=== PATIENT | female | born 1945 | race Caucasian/White ===

== ENCOUNTER 2023-11-07 12:29 | Emergency (ER) | payer OTHER, SELFPAY ==
[2023-11-07] VITALS (8 sets, daily range): BP systolic 88–141; BP diastolic 36–78; PULSE 59–72; BMI 36.3
--- NOTE | 2023-11-07 12:55 | ED.GENMED ---
History of Present Illness
General
Chief Complaint: Headache
Time Seen by Provider: 11/07/23 12:33
History of Present Illness
History of Present Illness:
78-year-old female history of asthma, atrial fibrillation on Eliquis, hypertension, hyperlipidemia, stroke with no residual deficits presenting with syncopal episode today. Pt states she stood up to make a sandwich when she felt dizzy and had a
syncopal episode. Pt denies striking her head. Pt states she had a syncopal episode yesterday when she was packing her car, felt dizzy and woke up on the ground. Pt denies striking her head. Pt denies chest pain or abdominal pain. Pt states she has
been having a left posterior headache radiating towards her left eye for the past 4 days, none now. Pt denies history of previous headache. Pt states she has been seeing floaters described as 'firework' in her right eye for the past 4 days, none
now. Pt denies numbness, weakness, tingling, neck pain, back pain, nausea, vomiting, diarrhea, or urinary symptoms. Pt reports decreased PO intake since Wednesday 11/01 due to 'not being hungry'. Pt states she has a productive cough with associated
shortness of breath for the past 1 month.
Phy Exam
Physical Exam
Physical Exam:
General: Alert, no acute distress
Head: NCAT
Eyes: clear conjunctiva, PERRLA, EOMI
Neck: supple. No midline tenderness to palpation
Cardiac: regular rate and rhythm, no murmur
Lungs: clear to auscultation bilaterally. No wheezes, rales, or rhonchi. Speaking full unlabored sentences. No respiratory distress.
Abdomen: soft, nondistended nontender. No rebound or guarding.
MSK: no lower extremity edema bilaterally. No deformity. No midline cervical/thoracic/lumbar tenderness to palpation.
Skin: warm, dry
Neuro: Alert and oriented x3. Cranial nerves II through XII grossly intact no focal deficits. 5/5 strength bilateral upper and lower extremity. No pronator drift bilateral upper and lower extremity. Normal finger-nose. No slurred speech.
Course
Orders/Labs/Results
Orders:
Orders
11/07/23 12:35
Electrocardiogram (*1) Urgent
Reason for Study: Vertigo / Dizzy
EKG- Treatment ONCE
11/07/23 12:46
CMP [Comprehensive Metabolic Panel] Urgent
Complete Blood Count/With Diff Urgent
11/07/23 12:53
EKG [Electrocardiogram (*1)] Urgent
Reason for Study: Syncope
CT Head W/o Iv Contrast Urgent
Comment:
Reason For Exam: left sided headache, on eliquis
EKG- Treatment ONCE
Orthostatic VS- Treatment ONCE
CXR2 [CR Chest - 2 Views ] Urgent
Comment:
Reason For Exam: sob
11/07/23 16:32
UA Reflex to Culture [Urinalysis Reflex To Culture] Urgent
Date Specimen was Collected: 11/07/23
Time Specimen was Collected: 16:31
Urine Microscopic Reflex Cult Urgent
Urine Culture Urgent
KRANTHI Source: U
Specimen Description:
Date Specimen was Collected: 11/07/23
Time Specimen was Collected: 16:31
11/07/23 17:44
CefTRIAXone [Rocephin] 1,000 mg IV NOW STA
11/07/23 17:54
Sterile Water [Sterile Water For Injection] 10 ml .ROUTE .STK-MED ONE
Abnormal Lab Results
11/07/23 11/07/23
12:46 16:32
WBC 11.9 H 10^3/uL
(4.8-10.8)
MCH 31.4 H pg
(27.0-31.0)
Abs Immat Gran (auto) 0.1 H 10^3/uL
(0-0.05)
Absolute Neuts (auto) 7.8 H 10^3/uL
(1.4-6.5)
Absolute Monos (auto) 0.9 H 10^3/uL
(0.1-0.6)
Potassium 3.4 L mmol/L
(3.5-5.1)
BUN 43 H mg/dl
(7-17)
Creatinine 1.8 H mg/dL
(0.6-1.0)
Glucose 102 H mg/dl
(70-99)
Total Bilirubin 1.4 H mg/dl
(0.2-1.3)
Urine Ketones Trace A
(Negative)
Urine Bilirubin 1+ A
(Negative)
Leukocyte Esterase Rfl 2+ A
(Negative)
Urine Bacteria (Reflex) Moderate A
(Negative)
11/07/23 12:46
11/07/23 12:46
Vital Signs
Initial and Last Documented VS:
Initial Vital Signs
BP
141/68
11/07/23 12:33
Last Documented Vital Signs
Temp Pulse Resp BP Pulse Ox
98 F 68 21 133/63 97
11/07/23 12:40 11/07/23 17:30 11/07/23 18:15 11/07/23 14:00 11/07/23 16:15
MDM/Problems Addressed
MDM/Problems Addressed:
78-year-old female history of asthma, atrial fibrillation, hypertension, hyperlipidemia presenting with 2 syncopal episodes starting yesterday. Patient states that she felt dizzy prior to syncopal episode. Patient denies striking her head.
Patient states that she was unconscious for a few seconds and then woke up alert and oriented. Patient denies any trauma. Patient reports left-sided posterior headache for the past 4 days which is new. Patient reports decreased p.o. intake.
Patient reports cough for the past 1 month. Differential diagnosis includes orthostatic syncope, electrolyte normality, KATIA, UTI, pneumonia, intracranial hemorrhage, ocular migraine, arrhythmia. Will obtain labs, EKG, CT head, cXR, UA. Will obtain
orthostatics, give 1L NS
+ orthostatics.
Workup reviewed, WBC 11.9. creatinine 1.8 (baseline 1.3) BUN 43, suggesting prerenal injury most likely from decreased PO intake causing orthostatic hypotension. UA concerning for UTI. CT head shows No acute intracranial abnormality. Sequela of
chronic small vessel disease, unchanged. CXR shows No acute cardiopulmonary abnormality. As read by radiology. EKG shows NSR at 61bpm with DE 140 QTc 416 no acute ischemic changes.
Ordered ceftriaxone 1g IV for UTI. Discussed results with patient at bedside. Suspect decreased PO intake causing orthostatic syncope. Pt states she feels better after IV fluids. Vitals stable. Will discharge with keflex, PCP follow up.
*Critical Care Note
Total Time (30-74mins, 75-104mins- exclusive of procedures): Not Applicable
ED Attending Note
-
Portions of this chart may have been created with voice recognition software.� Occasional wrong word or��sound alike� substitutions may have occurred due to the inherent limitations of voice recognition software.
Discharge Plan
Departure
Patient Disposition: Home (Routine Discharge)
Date of Disposition: 11/07/23
Time of Disposition: 18:34
Patient with high blood pressure during this ER visit?: Yes
Discharge Problem:
Acute UTI, Orthostatic syncope
Instructions: Urinary Tract Infection, Adult ED, BLOOD PRESSURE
Prescriptions:
New
cephalexin 500 mg capsule
500 mg PO TID 7 Days Qty: 21 0RF
No Action
montelukast [Singulair] 10 mg Tablet
10 mg PO DAILY
paroxetine HCl [Paxil] 40 mg Tablet
40 mg PO DAILY
cholecalciferol (vitamin D3) [Vitamin D3] 25 mcg (1,000 unit) Tablet
25 mcg PO DAILY
cetirizine 10 mg Tablet
10 mg PO DAILY Qty: 0 0RF
Refresh Classic (PF) 1.4-0.6 % Dropperette
1 drops ophthalmic (eye) QIDPRN PRN (Reason: dry eyes) Qty: 0 0RF
meclizine 25 mg Tablet
12.5 mg PO TID 30 Days Qty: 45 0RF
fluticasone propionate 110 mcg/actuation Hfa Aerosol Inhaler
2 puff inhalation R BID 30 Days Qty: 1 0RF
warfarin [Jantoven] 1 mg tablet
3 mg PO DAILY 30 Days Qty: 90 0RF
atorvastatin 40 mg Tablet
40 mg PO DAILY 30 Days Qty: 30 0RF
polyethylene glycol 3350 [HealthyLax] 17 gram Powder In Packet
17 g PO DAILY 30 Days Qty: 60 0RF
amlodipine 10 mg Tablet
10 mg PO DAILY 30 Days Qty: 30 0RF
metoprolol succinate 25 mg Tablet Extended Release 24 Hr
25 mg PO DAILY 30 Days Qty: 30 0RF
albuterol sulfate [ProAir HFA] 90 mcg/actuation Hfa Aerosol Inhaler
2 puff INHALATION R QIDPRN PRN (Reason: sob) 30 Days Qty: 1 0RF
Referrals:
Sung Sterling MD [Family Provider] -
Activity Restrictions/Additional Instructions:
Take keflex 3 times daily for 7 days
Drink plenty of water, stay hydrated
Follow up with primary care doctor in 1-2 days
Return to the emergency department for fever, persistent vomiting or new/worsening symptoms
Interventions
Interventions:
*Risk Screen - Suicide Last Done: 11/07/23 12:42
*General Assessment Last Done: 11/07/23 12:42
*Neglect/Abuse Screening Last Done: 11/07/23 12:42
ED- Fall Risk Assessment Last Done: 11/07/23 12:44
*Nursing Disposition Last Done: 11/07/23 18:49
ED- Cardiac Assessment Last Done: 11/07/23 12:44
ED- Neurological Assessment Last Done: 11/07/23 12:45
Discharge Date and Time
Print Language: ITALIAN
[2023-11-07 13:00] LABS: % Basophils 0.2 % (0-2); % Eosinophils 0.7 % (0-6); % Immature Granulocytes 0.5 % (0-0.5); % Lymphocytes 25.3 % (20.5-51.1); % Monocytes 7.3 % (1.7-9.3); Absolute Eosinophils 0.1 10^3/uL (0-0.7); Absolute Immature Granulocytes 0.1 10^3/uL (0-0.05); Absolute Monocytes 0.9 10^3/uL (0.1-0.6); Absolute Neutrophils 7.8 10^3/uL (1.4-6.5); Hematocrit 44.3 % (37.0-47.0); Hemoglobin 15.5 g/dL (12.0-16.0); Mean Corpuscular Hgb 31.4 pg (27.0-31.0); Mean Corpuscular Volume 89.9 fL (81.0-99.0); Mean Platelet Volume 9.2 fL (7.4-10.4); Nucleated Red Blood Cells % 0 %; Platelet Count 287 10^3/uL (130-400); Red Blood Cell Count 4.93 10^6/uL (4.20-5.40); Red Cell Dist. Width 12.2 % (11.5-14.5); White Blood Cell Count 11.9 10^3/uL (4.8-10.8)
[2023-11-07 13:09] LABS: ALT (SGPT) 20 U/L (0-35); AST (SGOT) 29 U/L (14-36); Albumin 4.1 g/dl (3.5-5.0); Alkaline Phosphatase 50 U/L (38-126); Blood Urea Nitrogen 43 mg/dl (7-17); Calcium 9.8 mg/dl (8.4-10.2); Carbon Dioxide 26 mmol/L (22-30); Chloride 101 mmol/L (98-107); Estimated Creatinine Clearance 24 ml/min; Glucose 102 mg/dl (70-99); Potassium 3.4 mmol/L (3.5-5.1); Sodium 135 mmol/L (135-145); Total Bilirubin 1.4 mg/dl (0.2-1.3); Total Protein 6.4 g/dl (6.3-8.2); eGFR 28.31
--- NOTE | 2023-11-07 13:19 | EDRN ---
Peever dizzy while standing; had to sit at the end
[2023-11-07 16:41] LABS: Urine Albumin Trace (Neg - Trace); Urine Bilirubin 1+ (Negative); Urine Character Clear (Clear); Urine Color Yellow; Urine Glucose Negative (Negative); Urine Ketone Trace (Negative); Urine Leukocyte 2+ (Negative); Urine Nitrite Negative (Negative); Urine Occult Blood Negative (Negative); Urine Specific Gravity 1.015 (<1.030); Urine Urobilinogen Negative (Neg - 1+)
[2023-11-07 16:50] LABS: Urine Squamous Cell >30 /LPF (Few)
[2023-11-07 16:51] LABS: Urine Bacteria Moderate (Negative); Urine Red Blood Cell 0-2 /HPF (0-2)
[2023-11-07] MEDS: ROCEPHIN 1000 MG IV (17:59)
[2023-11-08 20:18] LABS: Amphetamines Negative (Negative); Barbiturates Negative (Negative); Benzodiazepines Negative (Negative); Buprenorphine Negative (Negative); Cocaine Negative (Negative); Marijuana Negative (Negative); Methadone Negative (Negative); Methamphetamines Negative (Negative); Opiates Negative (Negative); Phencyclidine Negative (Negative); Tricyclic Antidepressants Negative (Negative)
== END 2023-11-07 18:49 | disposition home or self-care (01) ==
LOC: EMR 12:29
PROVIDERS: Emergency Medicine; EMERGENCY PHYSICIAN Emergency Medicine; FAMILY PHYSICIAN Family Medicine
DX: R55 Syncope and collapse (principal); N39.0 Urinary tract infection, site not specified; R51.9 Headache, unspecified; J45.909 Unspecified asthma, uncomplicated; I48.91 Unspecified atrial fibrillation; I10 Essential (primary) hypertension; E78.00 Pure hypercholesterolemia, unspecified; Z79.01 Long term (current) use of anticoagulants; Z86.73 Personal history of transient ischemic attack (TIA), and cerebral infarction without residual deficits
CPT/HCPCS: 99284; 96374; 70450; 71046; 80053; 80306; 81003; 81015; 85025; 87086; 93005

== ENCOUNTER 2023-11-08 10:31 | Emergency (ER) | payer OTHER, SELFPAY ==
[2023-11-08 10:35] VITALS: BMI 36.6
[2023-11-08 11:00] VITALS: BP 153/69
[2023-11-08 11:08] LABS: % Basophils 0.3 % (0-2); % Eosinophils 1.3 % (0-6); % Immature Granulocytes 0.3 % (0-0.5); % Lymphocytes 22.8 % (20.5-51.1); % Monocytes 7.6 % (1.7-9.3); % Neutrophils 67.7 % (42.2-75.2); Absolute Eosinophils 0.1 10^3/uL (0-0.7); Absolute Monocytes 0.7 10^3/uL (0.1-0.6); Absolute Neutrophils 5.9 10^3/uL (1.4-6.5); Hematocrit 43.1 % (37.0-47.0); Hemoglobin 15.1 g/dL (12.0-16.0); Mean Corpuscular Hgb 31.3 pg (27.0-31.0); Mean Corpuscular Volume 89.2 fL (81.0-99.0); Mean Platelet Volume 9.2 fL (7.4-10.4); Nucleated Red Blood Cells % 0 %; Platelet Count 255 10^3/uL (130-400); Red Blood Cell Count 4.83 10^6/uL (4.20-5.40); White Blood Cell Count 8.7 10^3/uL (4.8-10.8)
[2023-11-08 11:18] LABS: ALT (SGPT) 18 U/L (0-35); AST (SGOT) 27 U/L (14-36); Albumin 3.7 g/dl (3.5-5.0); Alkaline Phosphatase 52 U/L (38-126); Blood Urea Nitrogen 44 mg/dl (7-17); Calcium 9.7 mg/dl (8.4-10.2); Carbon Dioxide 26 mmol/L (22-30); Chloride 100 mmol/L (98-107); Estimated Creatinine Clearance 29 ml/min; Glucose 113 mg/dl (70-99); Potassium 3.2 mmol/L (3.5-5.1); Sodium 135 mmol/L (135-145); Total Protein 5.9 g/dl (6.3-8.2); eGFR 35.23
--- NOTE | 2023-11-08 11:57 | ED.GENMED ---
History of Present Illness
General
Chief Complaint: Crisis Evaluation
Source: patient and ambulance crew
Time Seen by Provider: 11/08/23 10:33
History of Present Illness
History of Present Illness:
78-year-old female with past medical history of HTN, HLD, afib, previous CVA, mild CKD and diagnosed with UTI yesterday presenting back to the ER with EMS after patient sent a text to her brother earlier this morning that patient was going to kill
herself. Patient had a plan of finding the gun in her ex-husbands house, with whom she is currently living, and to shoot herself. Patient states that she [id number] area and have been staying with her
ex- to help with some of his medical needs but was told that she needed to leave the house by Saturday. Patient reports that she was evicted from her apartment in [place] and has nowhere to go back there. She had been living with her
daughter and grandchildren but they are currently staying in the [place] as they did not have any place to live either. Patient states she has no other family that she would be able to live with and no other friends as they are all already.
Patient has no other physical complaints at this time. Denies any history of suicidal ideations or attempts in the past
Past History
Past History
ED Past Medical History: Arrthythmia, CVA, HTN and Hypercholesterolemia
ED Past Surgical History: Tonsilectomy
Social History
Tobacco: Non-smoker
Alcohol: None
Drug: None
Personal:
Living: homeless
Review of Systems
Review of Systems
All Other Systems: ROS reviewed and negative except as documented in HPI and ROS
Phy Exam
Physical Exam
Physical Exam:
GENERAL: Alert , in no apparent distress
EYE: conjunctiva clear
Head: Normocephalic atraumatic
NECK: Supple,
ENT: mmm.
LUNGS: no acute respiratory distress
NEUROLOGICAL: Alert and oriented
SKIN: Warm and dry, skin intact.
MUSCULOSKELETAL: well perfused.
PSYCH: Normal and appropriate interaction.
Scores
Heart Failure Risk
Heart Failure Risk Score: Not Applicable
Heart Score for Chest Pain Patients
STEMI patient?: Not applicable
Withdrawal Assessment of Alcohol
Withdrawal Assessment Completed?: Not applicable
Course
Orders/Labs/Results
Orders:
Orders
11/08/23 10:44
Crisis Consult Urgent
Reason for Consult: suicidal ideation
11/08/23 10:45
1:1 Observation - Suicide/ Violent Behavior As Directed
Crisis Consult Urgent
Reason for Consult: suicide ideation
11/08/23 10:49
Complete Blood Count/With Diff Urgent
Comprehensive Metabolic Panel Urgent
11/08/23 11:21
Potassium Chloride [KCl] 40 meq PO NOW STA
11/08/23 12:20
Cephalexin Monohydrate [Keflex] 500 mg PO NOW STA
Abnormal Lab Results
11/08/23
10:49
MCH 31.3 H pg
(27.0-31.0)
Absolute Monos (auto) 0.7 H 10^3/uL
(0.1-0.6)
Potassium 3.2 L mmol/L
(3.5-5.1)
BUN 44 H mg/dl
(7-17)
Creatinine 1.5 H mg/dL
(0.6-1.0)
Glucose 113 H mg/dl
(70-99)
Total Protein 5.9 L g/dl
(6.3-8.2)
11/08/23 10:49
11/08/23 10:49
Vital Signs
Initial and Last Documented VS:
Initial Vital Signs
Pulse Resp Pulse Ox
67 16 96
11/08/23 10:37 11/08/23 10:37 11/08/23 10:37
Last Documented Vital Signs
Pulse Resp BP Pulse Ox
73 16 153/69 94
11/08/23 11:00 11/08/23 11:00 11/08/23 11:00 11/08/23 11:00
MDM/Problems Addressed
MDM/Problems Addressed:
78-year-old female presenting to the emergency department for evaluation of reported suicidal ideation. Patient texted her brother that she was going to kill herself. Plan was to find a gun within her ex-'s house stating 'I know he has been
in there I just did not have the time to find it' with the plan that she was going to shoot herself. Patient states this is in relation to currently being homeless. She was told by her ex- that she was no longer allowed to stay with him and
needed to leave by Saturday. Patient ultimately wishes to go back to [place] but does not know where she was going to live. Labs ordered. Crisis consult ordered as well. Patient may social worker school to help with her current living situation.
*Pulse Oximetry
Patient hypoxic: no
*Critical Care Note
Total Time (30-74mins, 75-104mins- exclusive of procedures): Not Applicable
Data Reviewed
Review of Other/Old Records Reveals: Labs and Records
Patient Management
Social determinants of health affecting care: Living situation, Financial situation and Poor social support
Discussion with other providers: Other
Escalation/DeEscalation of care consider admission/obs:
Per [facility] they are awaiting paperwork from daughter who is POA. Plan will be to disposition patient to inpatient psych facility
ED Attending Note
-
Portions of this chart may have been created with voice recognition software.� Occasional wrong word or��sound alike� substitutions may have occurred due to the inherent limitations of voice recognition software.
Discharge Plan
Departure
Patient Disposition: Psych Facility
Date of Disposition: 11/08/23
Time of Disposition: 14:28
Discharge Problem:
Suicidal ideations
Prescriptions:
No Action
montelukast [Singulair] 10 mg Tablet
10 mg PO DAILY
paroxetine HCl [Paxil] 40 mg Tablet
40 mg PO DAILY
cholecalciferol (vitamin D3) [Vitamin D3] 25 mcg (1,000 unit) Tablet
25 mcg PO DAILY
cetirizine 10 mg Tablet
10 mg PO DAILY Qty: 0 0RF
Refresh Classic (PF) 1.4-0.6 % Dropperette
1 drops ophthalmic (eye) QIDPRN PRN (Reason: dry eyes) Qty: 0 0RF
cephalexin 500 mg capsule
500 mg PO TID 7 Days Qty: 21 0RF
meclizine 25 mg Tablet
12.5 mg PO TID 30 Days Qty: 45 0RF
fluticasone propionate 110 mcg/actuation Hfa Aerosol Inhaler
2 puff inhalation R BID 30 Days Qty: 1 0RF
warfarin [Jantoven] 1 mg tablet
3 mg PO DAILY 30 Days Qty: 90 0RF
atorvastatin 40 mg Tablet
40 mg PO DAILY 30 Days Qty: 30 0RF
polyethylene glycol 3350 [HealthyLax] 17 gram Powder In Packet
17 g PO DAILY 30 Days Qty: 60 0RF
amlodipine 10 mg Tablet
10 mg PO DAILY 30 Days Qty: 30 0RF
metoprolol succinate 25 mg Tablet Extended Release 24 Hr
25 mg PO DAILY 30 Days Qty: 30 0RF
albuterol sulfate [ProAir HFA] 90 mcg/actuation Hfa Aerosol Inhaler
2 puff INHALATION R QIDPRN PRN (Reason: sob) 30 Days Qty: 1 0RF
Referrals:
UNKNOWN - PT NOT,INTERVIEWE [Family Provider] -
Interventions
Interventions:
*Risk Screen - Suicide Last Done: 11/08/23 10:42
*General Assessment Last Done: 11/08/23 10:42
*Neglect/Abuse Screening Last Done: 11/08/23 10:45
ED- Fall Risk Assessment Last Done: 11/08/23 10:41
*ED COVID-19 Vaccine History Last Done: 11/08/23 10:42
ED-Psychological Assessment Last Done: 11/08/23 10:46
Discharge Date and Time
Print Language: PORTUGUESE
[2023-11-08] MEDS: KCL 40 MEQ PO (12:18)
[2023-11-08] MEDS: KEFLEX 500 MG PO (12:24)
[2023-11-08 18:51] VITALS: BP 128/68
[2023-11-08 19:58] LABS: COVID-19 Antigen Negative (Negative)
[2023-11-08 20:06] LABS: Alcohol None Detected
--- NOTE | 2023-11-08 21:51 | EDRN ---
patient calm and cooperative -- was given a boxed lunch and she did eat the sandwich- warm blankets applied- updated her on the crisis process and that she is being reviewed for placement. No questions or concerns - lights are dimmed and she is
attempting to get some sleep -- will continue to monitor.
[2023-11-09 04:24] VITALS: BP 145/63
--- NOTE | 2023-11-09 04:25 | EDRN ---
patient awake, vitals taken, provided patient with fresh water - instructed patient that we are in need of a urine.
[2023-11-09 08:53] VITALS: BP 137/65
[2023-11-09] MEDS: KEFLEX 500 MG PO (14:12)
[2023-11-09] MEDS: LIPITOR 40 MG PO (14:12)
[2023-11-09] MEDS: NORVASC 10 MG PO (14:12)
[2023-11-09] MEDS: ELIQUIS 5 MG PO (14:12)
== END 2023-11-09 14:50 ==
LOC: EMR 10:31
PROVIDERS: Physician Assistant Medical; EMERGENCY PHYSICIAN Emergency Medicine
DX: R45.851 Suicidal ideations (principal); Z59.00 Homelessness unspecified; I12.9 Hypertensive chronic kidney disease with stage 1 through stage 4 chronic kidney disease, or unspecified chronic kidney disease; N18.9 Chronic kidney disease, unspecified; E78.00 Pure hypercholesterolemia, unspecified; Z11.52 Encounter for screening for COVID-19
CPT/HCPCS: 99285; 80053; 82077; 85025; 87811